=== PATIENT | female | born 1975 | race African-American/Black ===

== ENCOUNTER → 2018-01-21 | Outpatient (CLI) | payer SELFPAY ==
[~2018-01-21] MED LIST: BENZ100 PO; IOHEXOL 350 MG/ML 10 ML VIAL (for RAD DIAG) IVCONTRAST ONE; METOPROLOL TARTRATE 50 MG TAB PO SCH; MUCI600T PO; NITROGLYCERIN 0.4 MG SL 25 TABS/BTL SL SCH; ZITH250T PO
[2018-01-21 10:32] VITALS: BP 134/86; PULSE 84; RESP 20; O2SAT 98
[2018-01-21] MEDS: METOPROLOL TARTRATE 5 MG/5 ML VIAL IV PUSH PRN ×2 (10:55→11:04)
[2018-01-21 11:05] VITALS: BP 127/89; PULSE 73; RESP 20; O2SAT 100
[2018-01-21 11:15] VITALS: BP 117/81; PULSE 70; RESP 20; O2SAT 100
[2018-01-21 11:19] VITALS: BP 117/68; PULSE 80; RESP 20; O2SAT 100
--- NOTE | 2018-01-21 17:27 | RADRPT ---
EXAM DATE: 01/21/2018 12:49 PM EDT AGE/SEX: 42 years / Female INDICATIONS: Chest pain. CLINICAL DATA: This is the patient's initial encounter. Patient reports that signs and symptoms have been present for 1 day and indicates a pain score of 0/10. MEDICAL/SURGICAL HISTORY: None. None. RADIATION DOSE: 5.12 CTDI (mGy) COMPARISON: No prior exams available for comparison. TECHNIQUE: Volumetric scanning was performed using a multi-row detector CT scanner during bolus inf usion of 97 ml Omnipaque 350 (iohexol) nonionic water-soluble contrast as a single exam dose. Image s were reconstructed using a retrospective gating algorithm including single sector and multi-sector algorithms at multiple phases of the cardiac cycle. Images were interpreted using a combination of 2D and 3D visualization modes including curved planar reformation, thin slab maximum intensity projecti on and volume rendering. Using automated exposure control and adjustment of the mA and/or kV accordin g to patient size, radiation dose was kept as low as reasonably achievable to obtain optimal diagnost ic quality images. DICOM format image data is available electronically for review and comparison. FINDINGS: VESSEL ANALYSIS: There are three aortic valve leaflets with normal origin of the coronary ostia. DOMINANCE: The coronary system is right dominant. LEFT MAIN: On the initial sequence, the left main is difficult to identify and there appears to be a high-grade stenosis of the LAD. However, a second sequence shows both of these vessels to be adequat e.. LAD: Normal size vessel without calcification or stenosis. CIRCUMFLEX: Normal size vessel without calcification or stenosis. RCA: Limited anatomic detail due to motion artifact but I believe the RCA is patent OTHER: Calcium score is 0. Lungs are clear CONCLUSION: 1. Calcium score 0. 2. Despite some motion artifact, the coronary arteries all appear to be patent with no significant s tenosis. Electronically signed by: James Asher MD 01/21/2018 5:26 PM EDT
== END ==
LOC: HRAD 09:35 → EEVIPCON 09:35
PROVIDERS: ATTEND Nuclear Medicine Nuclear Cardiology
DX: R07.9 Chest pain, unspecified (principal); R00.2 Palpitations; R00.0 Tachycardia, unspecified
CPT/HCPCS: 75574; Q9967